=== PATIENT | female | born 1980 | race Caucasian/White ===

== ENCOUNTER 2017-01-19 22:49 | Emergency (ER) | payer MEDICAID, OTHER ==
[~2017-01-19] VITALS: Ht 167.6 cm; Wt 88.0 kg
[2017-01-19 22:53] VITALS: Ht 167.6 cm; Wt 88.0 kg
[2017-01-19] MEDS ORDERED: ACET500C5 PO (23:52)
--- NOTE | 2017-01-19 23:56 | ERD ---
ER Documentation Chief Complaint Date/Time DATE: 01/19/17 TIME: 23:53 Chief Complaint sp ground level fall, 15 weeks , pelvic pain, back pain HPI Patient is a 36-year-old female, approximately 15 weeks , , presents emergency department with pelvic pain and lower back pain after a ground-level fall. Patient states she was walking her dog earlier in the park when she was pulled by her dog and fell onto her left buttocks. Patient states currently she has pain in her lower back. Patient denies any saddle anesthesia , urinary incontinence, stool incontinence, fevers, chills, nausea, vomiting or LOC. Patient denies any head injury. Patient is able to ambulate without any difficulty. Patient denies any vaginal bleeding, excessive vaginal discharge, fluid loss or severe pelvic pain. Patient reports mild pelvic cramping. Patient denies any dysuria, frequency, urgency or hematuria. Patient states her last menstrual period was on 10-07-16. 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 ROS All systems reviewed and are negative except as per history of present illness. Medications Home Meds Active Scripts Acetaminophen* (Tylophen*) 500 Mg Capsule, 1 CAP PO Q6H Y for PAIN AND OR ELEVATED TEMP, #20 CAP Prov:PATRICIA WINSTON PA-C 01/19/17 Allergies Allergies: Coded Allergies: Penicillins (Verified Allergy, Unknown, 01/19/17) PMhx/Soc Hx Alcohol Use: No Hx Substance Use: No Hx Tobacco Use: No Smoking Status: Never smoker FmHx Family History: No diabetes Physical Exam Vitals Vital Signs Date Time Temp Pulse Resp B/P Pulse Ox O2 Delivery O2 Flow Rate FiO2 01/19/17 22:53 97.8 83 20 122/75 98 Physical Exam GENERAL: Well-developed, well-nourished female. Appears in no acute distress. Speaking in full sentences. HEAD: Normocephalic, atraumatic. EYES: Pupils are equally reactive bilaterally. EOMs grossly intact. No conjunctival erythema. ENT: Moist mucous membranes. No uvula deviation. No kissing tonsils. NECK: Supple. No meningismus. Normal range of motion of the neck. LUNG: Clear to auscultation bilaterally. No rhonchi, wheezing, rales or coarse breath sounds. HEART: Regular rate and rhythm. No murmurs, rubs or gallops. ABDOMEN: No scars, ecchymosis or rashes noted. Soft, nontender, and nondistended. Positive bowel sounds in all four quadrants. No rebound tenderness , no guarding. (-) McBurney's point tenderness. No CVA tenderness. BACK: No midline tenderness. Negative straight leg raise bilaterally. EXTREMITIES: Equal pulses bilaterally. No peripheral clubbing, cyanosis or edema. No unilateral leg swelling. NEUROLOGIC: Alert and oriented. Moving all four extremities without any difficulty. Normal speech. Steady gait. SKIN: Normal color. Warm and dry. No rashes or lesions. Procedures/MDM ED COURSE: The patient was stable throughout ED course. I kept the patient and/or family informed of laboratory and diagnostic imaging results throughout the ED course. DIAGNOSTIC IMAGING: Read by radiologist. DIAGNOSTIC IMAGING REPORT Patient: MODESTA FERNANDES : 1980 Age: 36 Sex: F MR #: [id number] DOS: 01/19/17 2311 Ordering MD: PATRICIA WINSTON PA-C Location: [facility]TE Room/Bed: PROCEDURE: US OB. CLINICAL INDICATION: Pain. TECHNIQUE: Multiple sonographic images of the pelvis were obtained. Transabdominal imaging only was performed. The images were reviewed on a PACS workstation. COMPARISON: None. FINDINGS: Single live intrauterine is identified. Cardiac activity is present with 148 beats per minute. There is a vertex presentation. Measurements: BPD = 15 weeks 3 days. HC = 15 weeks 2 days. AC = 15 weeks 4 days. FL = 15 weeks 1 day. Estimated gestational age of approximately 15 weeks 3 days. The estimated date of delivery is 07/10/2017. The EFW = 121 g. The placenta is anterior. There is no evidence for an abruption. There is a grossly normal amount of amniotic fluid MVP = 3.7 cm. IMPRESSION: Single live intrauterine gestation of approximately 15 weeks 3 days. RPTAT: HMVK .Desmond Espinoza MD, Date Time Electronically viewed and signed by .Desmond Espinoza MDMD on 01/19/2017 23:54 .K/ CC: PATRICIA WINSTON PA-C MEDICAL DECISION MAKING: Patient is 36-year-old female presents to the emergency department for concerns of pelvic cramping and lower back pain after a ground-level fall earlier today while walking her dog. Patient denied any vaginal bleeding, excessive vaginal discharge, fluid loss. Patient did report feeling her baby kick. Patient denied any saddle anesthesia, urinary incontinence, stool incontinence. Vital signs were reviewed. Patient was afebrile. Patient was hemodynamically stable. .Pelvic ultrasound showed single live intrauterine gestation of approximately 15 weeks and 3 days. Patient was ambulating without any difficulty. I explained to the patient that at this time, x-ray imaging is not indicated given that patient is . Patient understands that I am unable to rule out any spinal fractures or dislocations. Patient was advised that she should follow-up with her primary care physician and/or [employer] for an MRI on an outpatient basis. Given these findings, the patients presentation is most consistent with intrauterine and lower back pain. Unable to rule out any spinal fractures or dislocations. Low suspicion for demise, spontaneous , subchorionic hemorrhage. Low suspicion for cauda equina syndrome, epidural abscess, osteomyelitis, sciatica, UTI, pyelonephritis, nephrolithiasis. PRESCRIPTIONS: Tylenol DISCHARGE: At this time, patient is stable for discharge and outpatient management. RICE therapy is advised. Patient was advised to return to the emergency department for severe pelvic pain, vaginal bleeding or excessive vaginal fluid loss. I have instructed the patient to follow-up with his/her primary care physician in 1-2 days. I have discussed with the patient the possibility of needing to see an alteration specialist for further workup and imaging if the pain persists. I have instructed the patient to promptly return to the ER for any new or worsening symptoms including increased pain, swelling, warmth, urinary incontinence, stool incontinence, weakness or numbness. The patient and/or family expressed understanding of and agreement with this plan. All questions were answered. Home care instructions were provided. Departure Diagnosis: Primary Impression: Lower back pain Chronicity: acute Back pain laterality: unspecified Sciatica presence: unspecified whether sciatica present Qualified Code: M54.5 - Acute low back pain, unspecified back pain laterality, with sciatica presence unspecified Additional Impression: Pelvic pain during Condition: Stable Patient Instructions: Back Pain (Acute Or Chronic) Referrals: [facility] YOU HAVE RECEIVED A MEDICAL SCREENING EXAM AND THE RESULTS INDICATE THAT YOU DO NOT HAVE A CONDITION THAT REQUIRES URGENT TREATMENT IN THE EMERGENCY DEPARTMENT. FURTHER EVALUATION AND TREATMENT OF YOUR CONDITION CAN WAIT UNTIL YOU ARE SEEN IN YOUR DOCTORS OFFICE WITHIN THE NEXT 1-2 DAYS. IT IS YOUR RESPONSIBILITY TO MAKE AN APPOINTMENT FOR FOLOW-UP CARE. IF YOU HAVE A PRIMARY DOCTOR --you should call your primary doctor and schedule an appointment IF YOU DO NOT HAVE A PRIMARY DOCTOR YOU CAN CALL OUR PHYSICIAN REFERRAL HOTLINE AT IF YOU CAN NOT AFFORD TO SEE A PHYSICIAN YOU CAN CHOSE FROM THE FOLLOWING [facility] [address] [facility]. [facility] [address] [facility]. [facility] [address] [facility] [address] [facility]. [facility] [address] [facility]. [facility] [address]. [facility] YOU HAVE RECEIVED A MEDICAL SCREENING EXAM AND THE RESULTS INDICATE THAT YOU DO NOT HAVE A CONDITION THAT REQUIRES URGENT TREATMENT IN THE EMERGENCY DEPARTMENT. FURTHER EVALUATION AND TREATMENT OF YOUR CONDITION CAN WAIT UNTIL YOU ARE SEEN IN YOUR DOCTORS OFFICE WITHIN THE NEXT 1-2 DAYS. IT IS YOUR RESPONSIBILITY TO MAKE AN APPOINTMENT FOR FOLOW-UP CARE. IF YOU HAVE A PRIMARY DOCTOR --you should call your primary doctor and schedule and appointment IF YOU DO NOT HAVE A PRIMARY DOCTOR YOU CAN CALL OUR PHYSICIAN REFERRAL HOTLINE AT . IF YOU CAN NOT AFFORD TO SEE A PHYSICIAN YOU CAN CHOSE FROM THE FOLLOWING [facility] INSTITUTIONS[facility] [address] [place] [address] [facility] [address] [place] [address] [facility] [address] [place] [address] [employer] [place] [address] [facility] [address] [place] [address] OFFICE FAX , [place] [address] [place] [address] [address], [place] [address] [place] [address] [address] MUNGUIA, [facility] [address] [facility] [address] [address], [facility] [address] [place] [address] [facility] [address] [place] [address] [phone] [address] [facility] [address] - [address] GOTTI [facility] [address], [facility] [address] [place] [address] [facility]. [address], [place] [address] [address] M[address], [facility] [address] [place], [place] [id number] Additional Instructions: Call your primary care doctor/OBGYN TOMORROW for an appointment during the next 1-2 days.See the doctor sooner or return here if your condition worsens before your appointment time. Unable to rule out any spinal fractures or dislocations. Patient advised to follow-up with primary care physician and/or [facility] if back pain persists. Patient may need an MRI and an outpatient basis. PATRICIA WINSTON PA-C Jan 19, 2017 23:56
== END 2017-01-20 00:10 | disposition home or self-care (01) ==
LOC: FTE 22:49
DX: O99.89 Other specified diseases and conditions complicating pregnancy, childbirth and the puerperium (principal); M54.5 Low back pain; R10.2 Pelvic and perineal pain; Z3A.15 15 weeks gestation of pregnancy
CPT/HCPCS: 76805; Z7502

== ENCOUNTER 2017-01-24 18:28 | Emergency (ER) | payer MEDICAID ==
[~2017-01-24] VITALS: Ht 165.1 cm; Wt 88.0 kg
[~2017-01-24 18:28] MED LIST: ACET500C5 PO
[2017-01-24 18:35] VITALS: Ht 165.1 cm; Wt 88.0 kg
[2017-01-24 19:36] LABS: BASOPHILS % 0.2 % (0.0-2.0); EOSINOPHILS # 0.1 10^3/ul (0.0-0.5); EOSINOPHILS % 0.8 % (0.0-7.0); HEMATOCRIT 35.2 % (37.0-47.0); HEMOGLOBIN 12.4 g/dl (12.0-16.0); LYMPHOCYTES # 2.4 10^3/ul (0.8-2.9); LYMPHOCYTES % 15.7 % (15.0-51.0); MEAN CORPUSCULAR HEMOGLOBIN 31.6 pg (29.0-33.0); MEAN CORPUSCULAR HGB CONC 35.2 g/dl (32.0-37.0); MEAN CORPUSCULAR VOLUME 89.8 fl (82.0-101.0); MEAN PLATELET VOLUME 9.8 fl (7.4-10.4); MONOCYTE # 0.9 10^3/ul (0.3-0.9); MONOCYTES % 5.6 % (0.0-11.0); NEUTROPHIL # 11.9 10^3/ul (1.6-7.5); NEUTROPHILS % 76.5 % (39.0-77.0); PLATELET COUNT 368 10^3/UL (140-415); RED BLOOD COUNT 3.92 10^6/ul (4.20-5.40); RED CELL DISTRIBUTION WIDTH 13.2 % (11.5-14.5); WHITE BLOOD COUNT 15.5 10^3/ul (4.8-10.8)
[2017-01-24 19:39] LABS: ADD UMIC YES; UR ASCORBIC ACID NEGATIVE (NEGATIVE); UR BACTERIA FEW /HPF (NONE SEEN); UR BILIRUBIN (Dip) NEGATIVE (NEGATIVE); UR BLOOD (Dip) 3+ mg/dL (NEGATIVE); UR CLARITY SLIGHTLY CLOUDY (CLEAR); UR COLOR YELLOW (YELLOW); UR GLUCOSE (Dip) NEGATIVE (NEGATIVE); UR KETONES (Dip) NEGATIVE (NEGATIVE); UR LEUKOCYTE ESTERASE (Dip) 3+ Leu/ul (NEGATIVE); UR NITRITE (Dip) NEGATIVE (NEGATIVE); UR RBC 3 /HPF (0-5); UR SQUAMOUS EPITHELIAL CELL FEW /HPF (FEW); UR TOTAL PROTEIN (Dip) NEGATIVE (NEGATIVE); UR UROBILINOGEN (Dip) NEGATIVE (NEGATIVE)
--- NOTE | 2017-01-24 21:01 | RADRPT ---
PROCEDURE: US OB. CLINICAL INDICATION: Vaginal bleeding. TECHNIQUE: Multiple sonographic images of the uterus were obtained. The images were revi ewed on a PACS workstation. COMPARISON: 01/19/2017. FINDINGS: There is a single live intrauterine gestation. heart rate is 154 beats per minute. Measurements were made in order to determine age. The results are as follows: BPD = 3.19 cm. HC = 11.93 cm. AC = 11.55 cm. FL = 2.13 cm. Estimated weight is 167 +/- 25 grams. Menstrual age by ultrasound dates is 16 weeks 3 days. The estimated date of delivery is 07/08/2017. Position is variable and placenta is anterior grade 0. There is no evidence for an abruption or plac enta previa. IMPRESSION: 1. Single live intrauterine gestation of 16 weeks 3 days menstrual age by ultrasound dates. 2. The estimated date of delivery is 07/08/2017. RPTAT: QQ .Natanael Wilkes MD, MD Date Time Electronically viewed and signed by .Natanael Wilkes MD, on 01/24/2017 21:00 .R/
[2017-01-24] MEDS ORDERED: NITR-58 PO (21:10)
--- NOTE | 2017-01-24 21:16 | ERD ---
ER Documentation Chief Complaint Date/Time DATE: 01/24/17 TIME: 21:13 Chief Complaint pelvic/back pain with vaginal bleeding x 1 hour HPI Patient is a 36-year-old female who is approximately 15 weeks and 5 days complaining of some mild vaginal bleeding that began today. She also admits to increased urinary frequency and dysuria and lower back pain. Denies fever. Denies any nausea vomiting. She is taking vitamins. ROS All systems reviewed and are negative except as per history of present illness. Medications Home Meds Active Scripts Nitrofurantoin Monohyd Macrocr* (Macrobid*) 100 Mg Capsr, 100 MG PO BID for 7 Days, CAP Prov:GAEL OWEN PA-C 01/24/17 Acetaminophen* (Tylophen*) 500 Mg Capsule, 1 CAP PO Q6H Y for PAIN AND OR ELEVATED TEMP, #20 CAP Prov:PATRICIA WINSTON PA-C 01/19/17 Allergies Allergies: Coded Allergies: Penicillins (Verified Allergy, Unknown, 01/24/17) PMhx/Soc Medical and Surgical Hx: pt denies Medical Hx, pt denies Surgical Hx History of Surgery: No Anesthesia Reaction: No Hx Neurological Disorder: No Hx Respiratory Disorders: No Hx Cardiac Disorders: No Hx Psychiatric Problems: No Hx Alcohol Use: No Hx Substance Use: No Hx Tobacco Use: No Smoking Status: Never smoker FmHx Family History: No diabetes Physical Exam Vitals Vital Signs Date Time Temp Pulse Resp B/P Pulse Ox O2 Delivery O2 Flow Rate FiO2 01/24/17 18:35 97.5 85 16 115/72 98 Physical Exam General: well developed, well nourished, alert, nontoxic, no distress Head: normocephalic, atraumatic Eyes: PERRL, normal conjunctiva Neck: Supple, nontender, no lymphadenopathy, no midline tenderness Respiratory: Clear to auscaultation bilaterally, speaks in full sentences, no use of accesory muscles or labored breathing, no rales, ronchi, or wheezing Cardiovascular: RRR, No murmurs GI: soft, non tender, non distended, negative murphys sign, negative mcburneys point tenderness, no cva tenderness bilaterally, no rebound or guarding Back: no midline tenderness, no step offs or bony abnormalities, sensation to light touch in tact Result Diagram: 01/24/17 1900 Results 24 hrs Laboratory Tests Test 01/24/17 19:00 01/24/17 19:19 White Blood Count 15.510^3/ul Red Blood Count 3.9210^6/ul Hemoglobin 12.4g/dl Hematocrit 35.2% Mean Corpuscular Volume 89.8fl Mean Corpuscular Hemoglobin 31.6pg Mean Corpuscular Hemoglobin Concent 35.2g/dl Red Cell Distribution Width 13.2% Platelet Count 04655^3/UL Mean Platelet Volume 9.8fl Neutrophils % 76.5% Lymphocytes % 15.7% Monocytes % 5.6% Eosinophils % 0.8% Basophils % 0.2% Nucleated Red Blood Cells % 0.0/100WBC Neutrophils # 11.910^3/ul Lymphocytes # 2.410^3/ul Monocytes # 0.910^3/ul Eosinophils # 0.110^3/ul Basophils # 0.010^3/ul Nucleated Red Blood Cells # 0.010^3/ul Urine Color YELLOW Urine Clarity SLIGHTLY CLOUDY Urine pH 7.0 Urine Specific [place] 1.010 Urine Ketones NEGATIVEmg/dL Urine Nitrite NEGATIVEmg/dL Urine Bilirubin NEGATIVEmg/dL Urine Urobilinogen NEGATIVEmg/dL Urine Leukocyte Esterase 3+Margaret/ul Urine Microscopic RBC 3/HPF Urine Microscopic WBC 37/HPF Urine Squamous Epithelial Cells FEW/HPF Urine Bacteria FEW/HPF Urine Hemoglobin 3+mg/dL Urine Glucose NEGATIVEmg/dL Urine Total Protein NEGATIVEmg/dl Beta HCG, Quantitative 11795.0mIU/ml Procedures/MDM Patient is a 36-year-old female who presents with mild vaginal bleeding and mild pelvic pain during . Her vital signs are normal she is well- appearing in no distress. Her workup is unremarkable except for evidence urinary tract infection she will be treated with Macrobid. She was given copies of all of her labs and ultrasound reports she can follow-up with primary care. Recommended this patient follow up with her primary care doctor within 48 hours or return to the emergency room for any worsening of symptoms. However this time I do believe there is suitable for outpatient management. I answered all their questions and they agreed with the plan and were discharged home. Departure Diagnosis: Primary Impression: Cystitis during in first trimester, antepartum Condition: Stable Patient Instructions: Cystitis Additional Instructions: Call your primary care doctor TOMORROW for an appointment during the next 1-2 days.See the doctor sooner or return here if your condition worsens before your appointment time. GAEL OWEN PA-C Jan 24, 2017 21:16
== END 2017-01-24 21:11 | disposition home or self-care (01) ==
LOC: FTE 18:28
DX: O23.12 Infections of bladder in pregnancy, second trimester (principal); R10.2 Pelvic and perineal pain; Z3A.16 16 weeks gestation of pregnancy
CPT/HCPCS: 36415; 76805; 81001; 84702; 85025; 86900; 86901; Z7502

== ENCOUNTER 2017-02-24 02:40 | Outpatient (CLI) | payer MEDICAID, OTHER ==
[~2017-02-24] VITALS: Ht 167.6 cm; Wt 90.5 kg
[~2017-02-24 02:40] MED LIST changes: +NITR-58 PO
[2017-02-24 03:17] VITALS: Ht 167.6 cm; Wt 90.5 kg
[2017-02-24 03:20] VITALS: BP 117/69; PULSE 81; RESP 18
[2017-02-24] MEDS ORDERED: PRENAT PO (03:24)
[2017-02-24] MEDS ORDERED: FOL8 PO (03:25)
--- NOTE | 2017-02-24 03:52 | PN ---
Triage Information Date/Time 02/24/17 Reason for visit: Weeks of Gestation 20WEEKS /Para PRIMIGRAVIDA Diabetes: none Additional information NO MORE SX READY TO GO HOME Objective Vital Signs Date Time Temp Pulse Resp B/P Pulse Ox O2 Delivery O2 Flow Rate FiO2 02/24/17 03:20 98.5 81 18 117/69 97 Room Air Heart Rate: 140's Contractions: None Disposition: Discharge Assessment/Plan IUP 20W BACKACHE HYPERVENTILATION CARI ROLAND MD Feb 24, 2017 03:52
--- NOTE | 2017-02-24 04:10 | TRIAGE ---
OB Triage Datetime Report Generated by CPN: 02/24/2017 04:10 Datetime: 02/24/2017 03:34 Stage of : OB Triage Labor Evaluation Frequency: 0 Monitor Mode: External Resting Tone [place]: Relaxed Pain Assessment Pain Presence: None/Denies Pain Type: N/A Datetime: 02/24/2017 03:14 Assessment Type: Triage Maternal Assessment Level of Consciousness: Fully Conscious DTR's/Clonus: DTRs 2+; No Clonus Headache: Denies Blurred Vision: No Respiratory Effort: Unlabored Breath Sounds, Left: Clear and Equal Breath Sounds, Right: Clear and Equal Nausea/Vomiting: Denies RUQ Epigastric Pain: Denies Lower Extremities Edema: None Degree: None Upper Extremities Edema: None Degree: None Facial Edema: None Fall Risk Assessment History of Falling: (0) No Secondary Diagnosis: (15) Yes Ambulatory Aid: (0) Bedrest/Nurse Assist IV Therapy: (0) No Gait: (0) Normal/Bedrest/Immobile Mental Status: (0) Oriented to Own Ability Fall Score: 15 Fall Risk Score Definition: No Risk: No action required Datetime: 02/24/2017 03:11 Time of Arrival: 02/24/2017 02:35 EGA: 20.0 Arrived By: Wheelchair Arrived From: Home Chief Complaint: BACK PAIN, UPPER AND LOWER EXTREMITY WEAKNESS, SOB Contractions: Denies/Absent Rupture of Membranes: Denies Vaginal Bleeding: None Vaginal Discharge: Denies Recent Sexual Intercouse: Denies Abdominal Trauma: Not Applicable Patient Complaints: Other Initial Plan: DOPPLER, TOCO, VS Datetime: 02/24/2017 03:04 Stage of : OB Triage Heart Rate FHR Baseline Rate: 130 Monitor Mode: Doppler Comments: x 1 min. FHTs audible from 130 to 145 bts/min Datetime: 02/24/2017 02:59 Stage of : OB Triage
== END 2017-02-24 03:50 | disposition home or self-care (01) ==
LOC: OBT 02:40 → L-D 02:44 → OBT 03:50
PROVIDERS: ATTEND Obstetrics & Gynecology
DX: O26.892 Other specified pregnancy related conditions, second trimester (principal); Z3A.20 20 weeks gestation of pregnancy; M54.9 Dorsalgia, unspecified; R06.4 Hyperventilation
CPT/HCPCS: G0463

== ENCOUNTER 2017-04-22 00:15 | Outpatient (CLI) | payer OTHER ==
[~2017-04-22] VITALS: Ht 167.6 cm; Wt 94.2 kg
[~2017-04-22 00:15] MED LIST changes: -ACET500C5 PO; +FOL8 PO; -NITR-58 PO; +PRENAT PO
[2017-04-22 00:29] VITALS: BP 117/74; PULSE 85; RESP 18
[2017-04-22 00:31] VITALS: Ht 167.6 cm; Wt 94.2 kg
[2017-04-22 01:54] LABS: ADD UMIC YES; UR ASCORBIC ACID NEGATIVE (NEGATIVE); UR BACTERIA FEW /HPF (NONE SEEN); UR BILIRUBIN (Dip) NEGATIVE (NEGATIVE); UR BLOOD (Dip) 2+ mg/dL (NEGATIVE); UR CLARITY CLEAR (CLEAR); UR COLOR STRAW (YELLOW); UR GLUCOSE (Dip) NEGATIVE (NEGATIVE); UR KETONES (Dip) NEGATIVE (NEGATIVE); UR LEUKOCYTE ESTERASE (Dip) 3+ Leu/ul (NEGATIVE); UR NITRITE (Dip) NEGATIVE (NEGATIVE); UR RBC 1 /HPF (0-5); UR SPECIFIC GRAVITY (Dip) 1.009 (1.003-1.030); UR SQUAMOUS EPITHELIAL CELL FEW /HPF (FEW); UR TOTAL PROTEIN (Dip) NEGATIVE (NEGATIVE); UR UROBILINOGEN (Dip) NEGATIVE (NEGATIVE)
--- NOTE | 2017-04-22 02:51 | RADRPT ---
PROCEDURE: Limited OB ultrasound CLINICAL INDICATION: labor. TECHNIQUE: Limited sonographic evaluation of the gravid uterus was performed to assess the amnioti c fluid volume. COMPARISON: 01/24/2017. FINDINGS: Single live intrauterine with cardiac heart rate of 143 beats per minute is identifi ed. The amniotic -fluid volume is 23.9 cm,. Fetus is in cephalic presentation. The placenta is lo cated anteriorly. Cervix is 3.94 cm length and closed.. IMPRESSION: 1. Amniotic fluid volume 23.9 cm. RPTAT: HMVK .Desmond Espinoza MD, Date Time Electronically viewed and signed by .Desmond Espinoza MD, on 04/22/2017 02:51 .K/
--- NOTE | 2017-04-22 03:28 | TRIAGE ---
OB Triage Datetime Report Generated by CPN: 04/22/2017 03:28 Datetime: 04/22/2017 03:15 Stage of : OB Triage Labor Evaluation Monitor Mode: External Pattern: Normal: <= 5 Contractions in 10 Minutes Resting Tone [place]: Relaxed Contraction Comments: No contractions Pain Presence: None/Denies Pain Type: N/A Datetime: 04/22/2017 02:31 Stage of : OB Triage Labor Evaluation Monitor Mode: External Pattern: Normal: <= 5 Contractions in 10 Minutes Resting Tone [place]: Relaxed Contraction Comments: No contractions Pain Presence: None/Denies Pain Type: N/A Pain Relief Measures: Comfort Measures Datetime: 04/22/2017 01:36 Stage of : OB Triage Labor Evaluation Monitor Mode: External Pattern: Normal: <= 5 Contractions in 10 Minutes Resting Tone [place]: Relaxed Contraction Comments: No contractions Heart Rate FHR Baseline Rate: 120 Monitor Mode: External US Variability: Moderate 6-25 bpm Accelerations: 15X15 Decelerations: None Category: Category I Comments: Baby removed from monitoring per MD Pain Assessment Pain Scale: 0 Pain Presence: None/Denies Pain Type: N/A Pain Relief Measures: Comfort Measures Datetime: 04/22/2017 01:27 Stage of : OB Triage Datetime: 04/22/2017 01:15 Stage of : OB Triage Vaginal Exam Pool: Negative Datetime: 04/22/2017 01:01 Stage of : OB Triage Datetime: 04/22/2017 00:58 Stage of : OB Triage Datetime: 04/22/2017 00:43 Stage of : OB Triage Assessment Type: Triage Maternal Assessment Level of Consciousness: Fully Conscious DTR's/Clonus: DTRs 2+; No Clonus Headache: Denies Blurred Vision: No Respiratory Effort: Unlabored; Regular Rhythm; Equal Expansion Breath Sounds, Left: Clear and Equal Breath Sounds, Right: Clear and Equal Nausea/Vomiting: Denies RUQ Epigastric Pain: Denies Lower Extremities Edema: None Degree: None Upper Extremities Edema: None Degree: None Facial Edema: None Temperature Route: Oral Fall Risk Assessment History of Falling: (0) No Secondary Diagnosis: (0) No Ambulatory Aid: (0) Bedrest/Nurse Assist IV Therapy: (0) No Gait: (0) Normal/Bedrest/Immobile Mental Status: (0) Oriented to Own Ability Fall Score: 0 Fall Risk Score Definition: No Risk: No action required Labor Evaluation Monitor Mode: External Contraction Comments: no contractions palpated or picked up by monitor at this time. Heart Rate FHR Baseline Rate: 125 Monitor Mode: External US Variability: Moderate 6-25 bpm Accelerations: 15X15 Decelerations: None Category: Category I Pain Assessment Pain Scale: 2 Pain Presence: Intermittent Pain Type: Pressure Pain Location: Abdomen; Back Pain Goal: 2 Pain Relief Measures: Comfort Measures Datetime: 04/22/2017 00:37 Time of Arrival: 04/22/2017 00:08 EGA: 28.0 Arrived By: Wheelchair Arrived From: Emergency Dept Movement: Present Contractions: Denies/Absent Rupture of Membranes: Denies Vaginal Bleeding: None Vaginal Discharge: Denies Recent Sexual Intercouse: Denies Abdominal Trauma: Not Applicable Patient Complaints: Other Additional Patient Complaints: Lower abdominal and back pain/pressure Time Provider Notified: 04/22/2017 00:55 Provider Notified: Initial Plan: VS, EFM Datetime: 02/24/2017 03:14 Fall Score: 15 Fall Risk Score Definition: No Risk: No action required Datetime: 02/24/2017 03:11 EGA: 20.0
--- NOTE | 2017-04-22 06:38 | PN ---
Triage Information Date/Time 04/22/2017 Reason for visit: labor Weeks of Gestation 28 week adn 1 days /Para Diabetes: none Hypertention: none Additional information 36 years old G1 P) with IUP at 28 week and 1 days present with complaint of lower abdominal pain ond off. Had an episode of accident that she felt she had urinated on her selft. Denies any vaginal bleeding, or decreased movement. no other complant Objective Vital Signs Date Time Temp Pulse Resp B/P Pulse Ox O2 Delivery O2 Flow Rate FiO2 04/22/17 00:29 98.0 85 18 117/74 Room Air Heart Rate: 130's Contractions: >10 Minutes Apart Exam occasional rare contractions on the monitor Abdomen: soft, non tender, Fundal Height consistent with date NST: CAt 1. appropriate for Ga SSE: Negaitve pooling, negative Nitrazine, Negative ROM test GARY: adequste, see the Us report Results/Medications Results 24 hrs Laboratory Tests Test 04/22/17 01:15 Urine Color STRAW Urine Clarity CLEAR Urine pH 7.0 Urine Specific [place] 1.009 Urine Ketones NEGATIVE Urine Nitrite NEGATIVE Urine Bilirubin NEGATIVE Urine Urobilinogen NEGATIVE Urine Leukocyte Esterase 3+ H Urine Microscopic RBC 1 Urine Microscopic WBC 4 Urine Squamous Epithelial Cells FEW Urine Bacteria FEW A Urine Hemoglobin 2+ H Urine Glucose NEGATIVE Urine Total Protein NEGATIVE Membranes Rupture NEGATIVE Imaging Results PROCEDURE: Limited OB ultrasound CLINICAL INDICATION: labor. TECHNIQUE: Limited sonographic evaluation of the gravid uterus was performed to assess the amniotic fluid volume. COMPARISON: 01/24/2017. FINDINGS: Single live intrauterine with cardiac heart rate of 143 beats per minute is identified. The amniotic -fluid volume is 23.9 cm,. Fetus is in cephalic presentation. The placenta is located anteriorly. Cervix is 3.94 cm length and closed.. IMPRESSION: 1. Amniotic fluid volume 23.9 cm. RPTAT: HMVK Disposition: Discharge Assessment/Plan IUP at 28 weeks and 1 day No evidence of PTL or PPROM Doing well DC Home Follow up in 24- 48 hours with her Ob office Patient verbalzied understanding SERENA FREEMAN MD Apr 22, 2017 06:38
== END 2017-04-22 03:10 | disposition home or self-care (01) ==
LOC: OBT 00:15 → L-D 00:15 → OBT 03:10
PROVIDERS: ATTEND Obstetrics & Gynecology Obstetrics
DX: O60.03 Preterm labor without delivery, third trimester (principal); Z3A.28 28 weeks gestation of pregnancy
CPT/HCPCS: 76815; 76817; 81001; 84112; Z7500; G0463